=== PATIENT | female | born 1990 ===

== ENCOUNTER 2021-04-15 07:46 | Outpatient (CLI) | payer OTHER, SELFPAY ==
--- NOTE | ~2021-04-15 | US_ITS ---
US abdomen complete EXAMINATION: US Abdomen Complete INDICATION: Right upper quadrant pain PROCEDURE: Realtime High Resolution abdomen ultrasound. COMPARISON: No prior studies for comparison FINDINGS: Gallbladder within normal limits. No gallstones, pericholecystic fluid, gallbladder wall t hickening or biliary dilatation. Common bile duct measures 4 mm. Liver echotexture liver echotexture is increased, consistent with fatty infiltration.. Pancreas with in normal limits. Pancreatic tail is obscured by bowel gas. Spleen is unremarkeable. Renal echotext ure is within normal limits bilaterally without hydronephrosis, contour deforming mass or renal stone . Right kidney measures 10 cm. Left kidney measures 10.3 cm. Visualized aspects of the aorta and IVC are within normal limits. Portal vein is patent. No sonograph ic Ward's sign indicated by the technologist. IMPRESSION: 1: Hepatic steatosis. Reviewed, dictated and finalized at location A. ERIES DIRECTOR IMPRESSION: 1: Hepatic steatosis.
--- NOTE | ~2021-04-15 | US_ITS ---
EXAMINATION: US pelvic complete w TV DATE: 04/15/2021 09:28 INDICATION: Abdominal pain Comparison:No prior studies for comparison. TECHNIQUE: Multiple transabdominal and endovaginal sonographic images of the pelvis performed. FINDINGS: The uterus measures 6.8 x 3.1 x 3.7 cm. The endometrial complex measures 7 mm. The right ovary measures 2.8 x 2.3 x 4.1 cm and the left ovary measures 2.8 x 1.9 x 1.6 cm. There is a complicated 1.9 cm right ovarian cyst with low-level internal echoes. There are small follicles in each ovary. Normal doppler signal in both ovaries. There is no free fluid in the pelvis. There are no abnormal masses seen on either side. IMPRESSION: 1. Complicated right ovarian cyst measuring 1.9 cm maximum dimension. Reviewed, dictated and finalized at location A. STFEEDING EDUCATOR
== END 2021-04-15 07:47 ==
PROVIDERS: PCP Emergency Medicine; Visit Provider Emergency Medicine
DX: R10.9 Unspecified abdominal pain (principal); N83.291 Other ovarian cyst, right side; K76.0 Fatty (change of) liver, not elsewhere classified
CPT/HCPCS: 76700; 76830; 76856